=== PATIENT | male | born 2000 | race African-American/Black ===

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

== ENCOUNTER 2019-05-28 13:08 | Observation (INO) | payer MEDICAID ==
[~2019-05-28] VITALS: Ht 175.3 cm; Wt 108.0 kg
--- NOTE | 2019-05-28 | NUR ---
PT LYING IN BED, WATCHING TV. NO C/O PAIN OR SOB. ALL NEEDS ATTENDED AT THIS TIME. CALL LIGHT WITHIN REACH. Addendum: 05/29/19 at 0359 by Melissa Spencer RN DISREGARD NOTE. WRONG DATE
[2019-05-28 13:20] VITALS: BP 132/89
--- NOTE | 2019-05-28 13:30 | NUR ---
Patient ambulated to bed 2 with family. RN evaluating patient at bedside.
--- NOTE | 2019-05-28 13:38 | NUR ---
18/M BIB FAMILY C/O SOB X 2 SAYS. HX OF ASTHMA. O2 SAT RA 94%. LABORED BREATHING NOTED. LUNGS WHEEZING. HX: ASTHMA. PATIENT STATES PAIN OF 8/10 AT THIS TIME. PATIENT POSITIONED FOR COMFORT; HOB ELEVATED; BEDRAILS UP X1; BED DOWN. ER MD MADE AWARE OF PT STATUS.
[2019-05-28] MEDS ORDERED: MAG SULF 2000 MG/WATER PREMIX 50 ML IV ONE (14:00)
[2019-05-28] MEDS ORDERED: ALBUTEROL 0.083% 2.5 MG/3 ML NEBU INH ONE ×3 (14:00→17:31)
[2019-05-28] MEDS ORDERED: IPRATROPIUM 0.02% 0.5 MG/2.5 ML NEBU INH ONE (14:00)
[2019-05-28] MEDS ORDERED: methylPREDNISolone SS 125 MG/2 ML VIAL IVP ONE (14:00)
--- NOTE | 2019-05-28 14:05 | NUR ---
Breathing treatment administered at bedside by respiratory therapist.
--- NOTE | 2019-05-28 15:54 | NUR ---
PT TAKEN TO X RAY.
[2019-05-28] MEDS ORDERED: ALBUTEROL SULFATE/IPRATROPIU 3 ML SOL IH ONE (16:40)
--- NOTE | 2019-05-28 16:46 | NUR ---
Breathing treatment administered at bedside by respiratory therapist.
--- NOTE | 2019-05-28 17:46 | NUR ---
Note daniel in EDM - 05/28/19 at 1839 by [facility] Patient will be admitted to care of DR ZENG . Admited to Med/Surg. Will go to room 110B. Belongings list completed. Report to MITCHEL LOPEZ.
--- NOTE | 2019-05-28 19:13 | NUR ---
Pt report given to ROSE LOPEZ. Transfer of care at this time.
--- NOTE | 2019-05-28 19:25 | NUR ---
UNABLE TO ADMIT PT TO [facility] DUE TO NURSING STAFF AVAILABILITY. RETURNED PT TO BED #2. AWAITING ONCALL NURSE AT [facility]. WILL CONTINUE TO MONITOR.
[2019-05-28] MEDS ORDERED: AZITHROMYCIN 500 MG in DEXTROSE 5% 250 ML IV SCH (19:30)
--- NOTE | 2019-05-28 20:15 | NUR ---
PT ADMITTED TO [facility] RM 105B. PT TRANSFERRED VIA [facility], STABLE CONDITION. REPORT GIVEN TO EMELY LOPEZ. PT CARE TRANSFERRED TO RECEIVING RN.
--- NOTE | 2019-05-28 20:15 | NUR ---
ADMITTED PT FROM ER VIA [facility]. AAOX4. NO C/O PAIN. ON O2 AT 2L/MIN VIA NC. SKIN INTACT. IV TO RIGHT AC #20G. DISCUSSED PLAN OF CARE, PT VERBALIZED UNDERSTANDING. ORIENTED PT TO ROOM. SAFETY PRECAUTION IN PLACE. CALL LIGHT WITHIN REACH.
[2019-05-28 20:30] VITALS: BP 125/58
[2019-05-28] MEDS ORDERED: AZITHROMYCIN 500 MG INJ VIAL IV ONE (20:50)
[2019-05-28] MEDS: NACL 0.9% 1,000 ML IV SCH (21:15)
[2019-05-28] MEDS ORDERED: KETOROLAC 30 MG/ML VIAL IVP PRN ×2 (21:15→21:25)
--- NOTE | 2019-05-28 21:15 | NUR ---
PT C/O BACK PAIN. PAGED DR. JULIAN. ORDERED TORADOL 30 MG IVP Q6H PRN. MD ORDERED IVF NS AT 70 ML/HR.
[2019-05-28] MEDS: ALBUTEROL 0.083% 2.5 MG/3 ML NEBU INH PRN (22:52)
[2019-05-29] VITALS: BP 125/61
--- NOTE | 2019-05-29 | NUR ---
PT LYING IN BED, WATCHING TV. NO C/O PAIN OR SOB. ALL NEEDS ATTENDED AT THIS TIME. CALL LIGHT WITHIN REACH.
[2019-05-29] MEDS: methylPREDNISolone SS 40 MG in WATER STERILE 1 ML IV SCH ×2 (00:18→05:38)
--- NOTE | 2019-05-29 02:45 | NUR ---
PT SLEEPING, EASILY AROUSABLE. NO S/S OF PAIN. RESP EVEN AND UNLABORED.
--- NOTE | 2019-05-29 04:00 | NUR ---
PT RESTING IN BED WITH EYES CLOSED. RESP EVEN AND UNLABORED. IVF INFUSING WELL. CALL LIGHT WITHIN REACH.
--- NOTE | 2019-05-29 06:00 | NUR ---
PT LYING IN BED, WATCHING TV. DENIES PAIN OR SOB.
[2019-05-29] MEDS: ALBUTEROL 0.083% 2.5 MG/3 ML NEBU INH PRN (06:21)
--- NOTE | 2019-05-29 07:10 | NUR ---
ENDORSED PT TO DAY SHIFT NURSE. PT IN STABLE CONDITION.
[2019-05-29 07:20] LABS: HEMATOCRIT 42.8 % (36-52); HEMOGLOBIN 14.1 g/dL (12.0-18.0); MEAN CORPUSCULAR HEMOGLOBIN 29 pg (27-31); MEAN CORPUSCULAR HGB CONC 33 g/dL (33-37); MEAN CORPUSCULAR VOLUME 87.2 fL (80-94); PLATELET COUNT (AUTO) 327 K/uL (140-450); RED CELL DISTRIBUTION WIDTH 13.6 % (11.6-13.7); WHITE BLOOD COUNT (AUTO) 9.4 K/uL (4.5-11.0)
--- NOTE | 2019-05-29 07:30 | NUR ---
Received report from mathematician research nurse. Pt is resting in bed in stable condition. Call light in reach.
[2019-05-29 07:32] LABS: ANION GAP 17.2 (8-16); CREATININE 0.9 mg/dL (0.7-1.3); POTASSIUM 4.2 mmol/L (3.5-5.1); TOTAL BILIRUBIN 0.6 mg/dL (0.0-1.0)
[2019-05-29 08:00] VITALS: BP 108/50
--- NOTE | 2019-05-29 08:21 | NUR ---
PATIENT HAS BEEN SCREENED AND CATEGORIZED LOW NUTRITION RISK. PATIENT WILL BE SEEN WITHIN 7 DAYS OF ADMISSION. 06/04/[address]
[2019-05-29] MEDS ORDERED: ALBUTEROL 0.083% 2.5 MG/3 ML NEBU INH PRN (09:00)
[2019-05-29] MEDS: NACL 0.9% 1,000 ML IV SCH (09:06)
--- NOTE | 2019-05-29 10:00 | NUR ---
Pt is resting in bed. by bedside. Pt in stable condition. Call light in reach.
[2019-05-29 11:09] LABS: LYMPHOCYTES % (MANUAL) 9 % (20-46); MONOCYTES % (MANUAL) 1 % (5-12)
--- NOTE | 2019-05-29 13:00 | NUR ---
Pt ambulated in [address] with beside him. Pt tolerated well. O2 sat at 95%. No SOB reported. No distress noted.
[2019-05-29] MEDS ORDERED: methylPREDNISolone SS 40 MG in WATER STERILE 1 ML IV SCH (13:30)
--- NOTE | 2019-05-29 16:00 | NUR ---
Pt was discharged today. Vitals signs WNL. Pt was alert and oriented and in stable condition. Pt was able to ambulate with a steady gait. Pt to follow up with PCP within 5 days. IV catheter taken out. Catheter intact. No bleeding on IV site. Pt's belonging with him. No SOB reported. No complains of pain reported. Accompanied by . Discharge papers and instructions given to patient. Patients prescription given to patient.
== END 2019-05-29 16:00 | disposition home or self-care (01) ==
LOC: MED 13:08 → MTU 18:55
PROVIDERS: ADMIT Internal Medicine; ATTEND Internal Medicine
DX: J45.901 Unspecified asthma with (acute) exacerbation (principal); F17.210 Nicotine dependence, cigarettes, uncomplicated; Z79.899 Other long term (current) drug therapy; Z91.010 Allergy to peanuts
CPT/HCPCS: 36415; 71046; 80053; 83605; 85025; 87081; 94640; 94644; 94760; 96365; 96366; 96367; 96375; 96376; 99285; G0378; J0456; J1885; J2920; J2930; J3475; J7030; J7060; J7613; J7620; J7644

== ENCOUNTER 2019-12-19 23:20 | Emergency (ER) | payer OTHER, MEDICAID ==
[~2019-12-19] VITALS: Ht 182.9 cm; Wt 114.3 kg
[2019-12-19 23:24] VITALS: BP 134/80
[2019-12-19] MEDS ORDERED: FLUMAZENIL 0.5 MG/5 ML VIAL IVP ONE (23:25)
[2019-12-20] VITALS: BP 134/80
== END 2019-12-20 | disposition home or self-care (01) ==
LOC: MED 23:20
DX: F13.20 Sedative, hypnotic or anxiolytic dependence, uncomplicated (principal); J45.909 Unspecified asthma, uncomplicated; Z79.899 Other long term (current) drug therapy; Z91.010 Allergy to peanuts; V89.2XXA Person injured in unspecified motor-vehicle accident, traffic, initial encounter; Y93.89 Activity, other specified; Y92.89 Other specified places as the place of occurrence of the external cause; Y99.8 Other external cause status
CPT/HCPCS: 96374; 99283

== ENCOUNTER 2020-10-30 08:41 | Emergency (ER) | payer MEDICAID ==
[~2020-10-30] VITALS: Ht 182.9 cm; Wt 86.2 kg
[2020-10-30 08:43] VITALS: BP 134/75
--- NOTE | 2020-10-30 08:51 | NUR ---
TO ED 07 - AMBULATORY FROM TRIAGE.
--- NOTE | 2020-10-30 08:52 | NUR ---
19 M c/c of SOB, 8/10 chest pain and productive cough of previous yellow sputum now white in color that began x3days. Pt reports headache yesterday that was alleviated with Ibuprofen 1,000mg and currently under control. Denies bodyaches, fever, diarrhea, lost of taste and smell. Reports chills and sweating. Denies TTP on abd. Rx: Prednisone treatment and albuterol (pt reports he ran out of inhaler) SocHx: past marijuana use ALLX: Peanuts PMH: Asthma, Pneumonia, COVID+ 3-4 mos ago.
[2020-10-30] MEDS ORDERED: IPRATROPIUM 0.02% 0.5 MG/2.5 ML NEBU INH ONE (09:05)
[2020-10-30] MEDS ORDERED: ALBUTEROL 0.083% 2.5 MG/3 ML NEBU INH ONE (09:05)
[2020-10-30] MEDS ORDERED: predniSONE 20 MG TAB PO ONE (09:05)
--- NOTE | 2020-10-30 09:15 | NUR ---
RT at bedside.
[2020-10-30] MEDS ORDERED: ALBU0.0912 IH (09:28)
[2020-10-30] MEDS ORDERED: PRED20TA5 PO (09:28)
[2020-10-30 10:04] VITALS: BP 134/77
--- NOTE | 2020-10-30 10:04 | NUR ---
Patient discharged with v/s stable. Written and verbal after care instructions given and explained. Patient alert, oriented and verbalized understanding of instructions. Ambulatory with steady gait. All questions addressed prior to discharge. ID band removed. Patient advised to follow up with PMD. Rx of albuterol sulfate and prednisone given. Patient educated on indication of medication including possible reaction and side effects. Opportunity to ask questions provided and answered.
== END 2020-10-30 10:04 | disposition home or self-care (01) ==
LOC: MED 08:41
DX: J45.901 Unspecified asthma with (acute) exacerbation (principal); R03.0 Elevated blood-pressure reading, without diagnosis of hypertension; Z91.010 Allergy to peanuts; Z79.899 Other long term (current) drug therapy
CPT/HCPCS: 71045; 94640; 99283; J7512; J7613; J7644

== ENCOUNTER 2021-03-12 22:23 | Emergency (ER) | payer MEDICAID ==
[~2021-03-12] VITALS: Ht 182.9 cm; Wt 112.2 kg
[~2021-03-12 22:23] MED LIST changes: +ALBU-118 IH; -ALBU-136 IH; +ALBU0.0912 IH; +PRED20TA5 PO
[2021-03-12 22:50] VITALS: BP 117/92
--- NOTE | 2021-03-12 22:53 | NUR ---
TO BED AMBULATORY
[2021-03-12 23:00] VITALS: BP 117/92
[2021-03-12] MEDS ORDERED: ALBUTEROL SULFATE/IPRATROPIU 3 ML SOL IH ONE ×2 (23:07→23:10)
--- NOTE | 2021-03-12 23:14 | NUR ---
RT AT BEDSIDE ADMINISTERING BREATHING TREATMENT
--- NOTE | 2021-03-13 01:23 | NUR ---
PATIENT CALLED FOR RE-EVALUATION AND NO RESPOSE IN TENT.
--- NOTE | 2021-03-13 01:23 | NUR ---
PATIENT ELOPED FROM FACILITY. DISCHARGE INSTRUCTIONS NOT GIVEN TO PATIENT. DR. ARIAS NOTIFIED.
== END 2021-03-13 01:23 | disposition left against medical advice (07) ==
LOC: MED 22:23
DX: R06.02 Shortness of breath (principal); J45.909 Unspecified asthma, uncomplicated; Z79.899 Other long term (current) drug therapy; Z91.010 Allergy to peanuts
CPT/HCPCS: 94640; 99283

== ENCOUNTER 2022-07-16 17:46 | Emergency (ER) | payer MEDICAID ==
[~2022-07-16] VITALS: Ht 182.9 cm; Wt 103.9 kg
[2022-07-16] MEDS ORDERED: ALBUTEROL 0.083% 2.5 MG/3 ML NEBU INH ONE (18:00)
[2022-07-16 18:09] VITALS: BP 117/57
--- NOTE | 2022-07-16 18:22 | NUR ---
pt swabbed for tash and influenza
--- NOTE | 2022-07-16 18:34 | NUR ---
PT AMBULATED TO ROOM 8
--- NOTE | 2022-07-16 18:35 | NUR ---
21YO MALE C/O INCREASED CHEST PAIN XTODAY. INITIAL ONSET X3DAYS. REPORTS FEVER , SOB AND INTERMITTENT CP EPISODES W/ AT PAIN AT MOST ON DEEP INHALATION . N/V X2 -BLOOD. JANEEN WHEEZING NOTED. MILD RELIEF AFTER USING ALBUTEROL INHALER. +FAMILY SICK AT HOME. PT AAOX4, RESPIRATIONS EVEN AND UNLABORED. ON PROGRAM SCHEDULER. HX:ASTHMA ALLERGIES: PEANUTS
--- NOTE | 2022-07-16 18:38 | NUR ---
rt tx given at ths time, pt 96% RA at this time
--- NOTE | 2022-07-16 18:52 | NUR ---
pt states he feels better after breathing tx, 98% ra
[2022-07-16] MEDS ORDERED: predniSONE 20 MG TAB PO ONE (19:00)
--- NOTE | 2022-07-16 19:09 | NUR ---
Note daniel in ED - 07/16/22 at 1917 by [id number] Patient lying in bed, A/Ox4, chest rise and fall symmetrical, no s/s of distress.
--- NOTE | 2022-07-16 19:12 | NUR ---
REPORT GIVEN TO REKHA LOPEZ. TRANSFER OF CARE AT THIS TIME
--- NOTE | 2022-07-16 19:20 | NUR ---
Patient lying in bed, A/Ox4, chest rise and fall symmetrical, no s/s of distress.
[2022-07-16] MEDS ORDERED: PRON INH (19:56)
[2022-07-16] MEDS ORDERED: ALBU0.0912 INH (19:56)
[2022-07-16] MEDS ORDERED: PRED20TA5 PO (19:56)
[2022-07-16 20:05] VITALS: BP 121/62
== END 2022-07-16 20:02 | disposition home or self-care (01) ==
LOC: MED 17:46
DX: J45.901 Unspecified asthma with (acute) exacerbation (principal); Z20.822 Contact with and (suspected) exposure to COVID-19; B34.9 Viral infection, unspecified; F12.90 Cannabis use, unspecified, uncomplicated; Z79.899 Other long term (current) drug therapy; Z91.010 Allergy to peanuts
CPT/HCPCS: 87426; 87804; 99283; J7512; J7613